=== PATIENT | female | born 1975 | race Caucasian/White ===

== ENCOUNTER 2021-03-01 15:56 | Emergency (ER) | payer SELFPAY ==
[~2021-03-01] VITALS: Wt 90.7 kg
[2021-03-01] MEDS ORDERED: AMLODIPINE BESYL5 MG PO (16:09)
== END 2021-03-01 18:51 | disposition home or self-care (01) ==
LOC: ED 15:56
DX: S05.12XA Contusion of eyeball and orbital tissues, left eye, initial encounter (principal); Z88.0 Allergy status to penicillin; Z88.2 Allergy status to sulfonamides; Z79.899 Other long term (current) drug therapy; Y08.89XA Assault by other specified means, initial encounter; Y93.89 Activity, other specified; Y92.89 Other specified places as the place of occurrence of the external cause; Y99.8 Other external cause status